=== PATIENT | male | born 1965 | race Caucasian/White ===

== ENCOUNTER 2018-07-04 14:28 | Inpatient (IN) | payer OTHER ==
[2018-07-04 15:13] LABS: ADD MAN DIFF? NO
[2018-07-04] MEDS: DILTIAZEM 25 MG INJ IV (15:13)
[2018-07-04 15:23] LABS: BASOPHILS % 0.4 % (0.0-2.0); EOSINOPHILS # 0.1 10^3/ul (0.0-0.5); EOSINOPHILS % 0.5 % (0.0-7.0); HEMATOCRIT 42.7 % (42.0-52.0); HEMOGLOBIN 14.9 g/dl (14.0-18.0); LYMPHOCYTES # 3.1 10^3/ul (0.8-2.9); LYMPHOCYTES % 31.9 % (15.0-51.0); MEAN CORPUSCULAR HGB CONC 34.9 g/dl (32.0-37.0); MEAN CORPUSCULAR VOLUME 86.1 fl (82.0-101.0); MEAN PLATELET VOLUME 11.6 fl (7.4-10.4); MONOCYTE # 0.8 10^3/ul (0.3-0.9); NEUTROPHIL # 5.7 10^3/ul (1.6-7.5); PLATELET COUNT 200 10^3/UL (140-415); RED BLOOD COUNT 4.96 10^6/ul (4.70-6.10); RED CELL DISTRIBUTION WIDTH 11.9 % (11.5-14.5)
[2018-07-04 15:23] LABS: WHITE BLOOD COUNT 9.7 10^3/ul (4.8-10.8)
[2018-07-04] MEDS: DILTIAZEM 30 MG TAB PO (15:34)
[2018-07-04] MEDS: SOD CHLORIDE 0.9% 1,000 ML IV (15:35)
[2018-07-04 15:44] LABS: ANION GAP 13 (5-13); BLOOD UREA NITROGEN 25 mg/dl (7-20); CALCIUM 9.4 mg/dl (8.4-10.2); CARBON DIOXIDE 24 mmol/L (21-31); CHLORIDE 106 mmol/L (97-110); CREATININE 1.09 mg/dl (0.61-1.24); Estimated GFR > 60 mL/min (>60); GLUCOSE 115 mg/dl (70-220); MAGNESIUM 1.9 mg/dl (1.7-2.5); POTASSIUM 3.5 mmol/L (3.5-5.1); SODIUM 143 mmol/L (135-144)
[2018-07-04 15:52] LABS: INR 0.99; PARTIAL THROMBOPLASTIN TIME 29.2 Sec (23.0-35.0); PROTIME 13.2 Sec (11.9-14.9)
[2018-07-04] MEDS ORDERED: NITROGLYCERIN (SL) 0.4 MG TAB SL (16:00)
[2018-07-04] MEDS ORDERED: LORAZEPAM 4 MG/ML VIAL IV (16:00)
[2018-07-04] MEDS ORDERED: HYDROmorphONE 0.5 MG/0.5 ML SYG IV (16:00)
[2018-07-04] MEDS ORDERED: MAGNESIUM HYDROXIDE 30ML CUP PO (16:00)
[2018-07-04] MEDS ORDERED: ONDANSETRON 4 MG INJ IV ×2 (16:00)
[2018-07-04] MEDS ORDERED: ALBUTEROL/IPRATROPIUM (NEB) 3 ML AMP HHN (16:00)
[2018-07-04] MEDS ORDERED: DOCUSATE SODIUM 100 MG CAP PO (16:00)
[2018-07-04] MEDS ORDERED: HYDROCODONE/APAP (5/325) TAB PO (16:00)
[2018-07-04] MEDS ORDERED: hydrALAzine 20 MG INJ IV (16:00)
[2018-07-04] MEDS ORDERED: NACL 0.9% 3 ML SYG IV (16:00)
[2018-07-04] MEDS ORDERED: ACETAMINOPHEN 325 MG TAB PO ×2 (16:00)
[2018-07-04 16:03] LABS: FREE T4 (FREE THYROXINE) 0.99 ng/dl (0.64-1.79)
[2018-07-04 16:08] LABS: TROPONIN-I 0.511 ng/ml (0.000-0.120)
[2018-07-04] MEDS: ASPIRIN 81 MG TAB PO (16:27)
[2018-07-04 16:28] LABS: AMPHETAMINE/METHAMPHETAMINE Negative (NEGATIVE); BARBITURATES Negative (NEGATIVE); BENZODIAZEPINES Negative (NEGATIVE); CANNABINOIDS Negative (NEGATIVE); COCAINE Negative (NEGATIVE)
[2018-07-04 17:18] LABS: OPIATES Negative (NEGATIVE)
[2018-07-04] MEDS: SOD CHLORIDE 0.45% 1,000 ML IV (17:54)
[2018-07-04] MEDS: ENOXAPARIN 100 MG/ML SYG SC (18:04)
[2018-07-04] MEDS: DILTIAZEM-D5W 125MG/125ML DRIP 125 ML IV (20:34)
[2018-07-04 21:04] LABS: CREATINE KINASE 82 IU/L (23-200)
[2018-07-04 21:15] LABS: CK INDEX 1.5; CK-MB 1.21 ng/ml (0.0-2.4)
[2018-07-04 21:32] LABS: TROPONIN-I 0.531 ng/ml (0.000-0.120)
[2018-07-05 02:33] LABS: ADD MAN DIFF? NO
[2018-07-05 02:35] LABS: WHITE BLOOD COUNT 11.3 10^3/ul (4.8-10.8)
[2018-07-05 02:35] LABS: BASOPHIL # 0.1 10^3/ul (0.0-0.1); BASOPHILS % 0.5 % (0.0-2.0); EOSINOPHILS # 0.1 10^3/ul (0.0-0.5); EOSINOPHILS % 0.7 % (0.0-7.0); HEMATOCRIT 42.8 % (42.0-52.0); HEMOGLOBIN 14.8 g/dl (14.0-18.0); LYMPHOCYTES # 3.2 10^3/ul (0.8-2.9); LYMPHOCYTES % 28.7 % (15.0-51.0); MEAN CORPUSCULAR HGB CONC 34.6 g/dl (32.0-37.0); MEAN CORPUSCULAR VOLUME 86.8 fl (82.0-101.0); MEAN PLATELET VOLUME 11.7 fl (7.4-10.4); MONOCYTE # 0.8 10^3/ul (0.3-0.9); MONOCYTES % 6.8 % (0.0-11.0); NEUTROPHIL # 7.1 10^3/ul (1.6-7.5); NEUTROPHILS % 62.9 % (39.0-77.0); PLATELET COUNT 194 10^3/UL (140-415); RED BLOOD COUNT 4.93 10^6/ul (4.70-6.10); RED CELL DISTRIBUTION WIDTH 11.9 % (11.5-14.5)
[2018-07-05 02:43] LABS: HEMOGLOBIN A1C 4.9 % (0-5.9)
[2018-07-05 02:52] LABS: CREATINE KINASE 78 IU/L (23-200)
[2018-07-05 02:53] LABS: CHOLESTEROL 164 mg/dl (100-200)
[2018-07-05 02:53] LABS: CHOL/HDL RATIO 7.4 RATIO; HDL CHOLESTEROL 22 mg/dl (28-71); LDL CHOLESTEROL,CALCULATED 51 mg/dl; TRIGLYCERIDES 457 mg/dl (0-149)
[2018-07-05 02:54] LABS: ANION GAP 10 (5-13); BLOOD UREA NITROGEN 21 mg/dl (7-20); CALCIUM 8.9 mg/dl (8.4-10.2); CARBON DIOXIDE 25 mmol/L (21-31); CHLORIDE 108 mmol/L (97-110); CREATININE 0.94 mg/dl (0.61-1.24); Estimated GFR > 60 mL/min (>60); GLUCOSE 111 mg/dl (70-220); MAGNESIUM 1.8 mg/dl (1.7-2.5); POTASSIUM 3.8 mmol/L (3.5-5.1); SODIUM 143 mmol/L (135-144)
[2018-07-05 03:03] LABS: CK INDEX 1.2; CK-MB 0.92 ng/ml (0.0-2.4)
[2018-07-05 03:07] LABS: TROPONIN-I 0.462 ng/ml (0.000-0.120)
[2018-07-05] MEDS: PANTOPRAZOLE (EC) 40 MG TAB PO ×2 (06:00→06:07)
[2018-07-05] MEDS: SOD CHLORIDE 0.45% 1,000 ML IV (06:07)
[2018-07-05] MEDS: DILTIAZEM-D5W 125MG/125ML DRIP 125 ML IV ×2 (07:01→15:44)
[2018-07-05] MEDS: ENOXAPARIN 100 MG/ML SYG SC ×2 (09:05→20:38)
[2018-07-05] MEDS: ATORVASTATIN 80 MG TAB PO (10:10)
[2018-07-05] MEDS: DEXTROSE 5%-0.45% NACL 1,000 ML IV (10:10)
[2018-07-05] MEDS: METOPROLOL 25 MG TAB PO (20:06)
[2018-07-06 05:58] LABS: ADD MAN DIFF? NO
[2018-07-06] MEDS: PANTOPRAZOLE (EC) 40 MG TAB PO (06:07)
[2018-07-06 06:09] LABS: BASOPHIL # 0.1 10^3/ul (0.0-0.1); BASOPHILS % 0.6 % (0.0-2.0); EOSINOPHILS # 0.1 10^3/ul (0.0-0.5); EOSINOPHILS % 1.1 % (0.0-7.0); HEMATOCRIT 40.3 % (42.0-52.0); HEMOGLOBIN 14.1 g/dl (14.0-18.0); LYMPHOCYTES # 2.1 10^3/ul (0.8-2.9); LYMPHOCYTES % 26.6 % (15.0-51.0); MEAN CORPUSCULAR HEMOGLOBIN 29.9 pg (29.0-33.0); MEAN CORPUSCULAR VOLUME 85.4 fl (82.0-101.0); MEAN PLATELET VOLUME 11.8 fl (7.4-10.4); MONOCYTE # 0.8 10^3/ul (0.3-0.9); MONOCYTES % 9.6 % (0.0-11.0); NEUTROPHIL # 4.9 10^3/ul (1.6-7.5); NEUTROPHILS % 61.7 % (39.0-77.0); PLATELET COUNT 176 10^3/UL (140-415); RED BLOOD COUNT 4.72 10^6/ul (4.70-6.10); RED CELL DISTRIBUTION WIDTH 11.8 % (11.5-14.5)
[2018-07-06 06:59] LABS: ANION GAP 9 (5-13); BLOOD UREA NITROGEN 17 mg/dl (7-20); CALCIUM 8.8 mg/dl (8.4-10.2); CARBON DIOXIDE 26 mmol/L (21-31); CHLORIDE 108 mmol/L (97-110); CREATININE 1.04 mg/dl (0.61-1.24); Estimated GFR > 60 mL/min (>60); GLUCOSE 105 mg/dl (70-220); POTASSIUM 3.8 mmol/L (3.5-5.1); SODIUM 143 mmol/L (135-144)
[2018-07-06] MEDS: ASPIRIN (EC) 325 MG TAB PO (08:58)
[2018-07-06] MEDS: METOPROLOL 25 MG TAB PO ×2 (08:59→20:27)
[2018-07-06] MEDS: ATORVASTATIN 80 MG TAB PO (08:59)
[2018-07-06] MEDS: ENOXAPARIN 100 MG/ML SYG SC (09:33)
[2018-07-07 05:55] LABS: ADD MAN DIFF? NO
[2018-07-07 06:03] LABS: WHITE BLOOD COUNT 6.6 10^3/ul (4.8-10.8)
[2018-07-07 06:03] LABS: BASOPHILS % 0.6 % (0.0-2.0); EOSINOPHILS # 0.2 10^3/ul (0.0-0.5); EOSINOPHILS % 2.9 % (0.0-7.0); HEMATOCRIT 42.4 % (42.0-52.0); HEMOGLOBIN 14.7 g/dl (14.0-18.0); LYMPHOCYTES % 29.9 % (15.0-51.0); MEAN CORPUSCULAR HEMOGLOBIN 29.9 pg (29.0-33.0); MEAN CORPUSCULAR HGB CONC 34.7 g/dl (32.0-37.0); MEAN CORPUSCULAR VOLUME 86.2 fl (82.0-101.0); MONOCYTE # 0.7 10^3/ul (0.3-0.9); MONOCYTES % 10.3 % (0.0-11.0); NEUTROPHIL # 3.7 10^3/ul (1.6-7.5); NEUTROPHILS % 55.5 % (39.0-77.0); PLATELET COUNT 176 10^3/UL (140-415); RED BLOOD COUNT 4.92 10^6/ul (4.70-6.10); RED CELL DISTRIBUTION WIDTH 11.6 % (11.5-14.5)
[2018-07-07] MEDS: PANTOPRAZOLE (EC) 40 MG TAB PO (06:03)
[2018-07-07 06:40] LABS: ANION GAP 7 (5-13); BLOOD UREA NITROGEN 20 mg/dl (7-20); CALCIUM 9.2 mg/dl (8.4-10.2); CARBON DIOXIDE 28 mmol/L (21-31); CHLORIDE 108 mmol/L (97-110); CREATININE 1.09 mg/dl (0.61-1.24); Estimated GFR > 60 mL/min (>60); GLUCOSE 107 mg/dl (70-220); SODIUM 143 mmol/L (135-144)
[2018-07-07] MEDS: ASPIRIN (EC) 325 MG TAB PO (08:58)
[2018-07-07] MEDS: HYDROCHLOROTHIAZIDE 25 MG TAB PO (08:59)
[2018-07-07] MEDS: METOPROLOL 25 MG TAB PO ×2 (08:59→12:00)
[2018-07-07] MEDS: SOD CHLORIDE 0.9% 100 ML (12:43)
[2018-07-07] MEDS: IOHEXOL 100 ML (12:43)
[2018-07-07] MEDS: METOPROLOL 5 MG INJ ×2 (12:50→13:03)
[2018-07-07] MEDS ORDERED: METOPROLOL 5 MG INJ IV (13:30)
[2018-07-07] MEDS: NITROGLYCERIN AEROSOL (4.9 GM) (13:58)
== END 2018-07-07 19:00 | disposition home or self-care (01) | DRG 282 ==
LOC: E/R 14:28 → TEL 15:56
DX: I21.4 Non-ST elevation (NSTEMI) myocardial infarction (principal); I48.0 Paroxysmal atrial fibrillation; I10 Essential (primary) hypertension
CPT/HCPCS: 36415; 71045; 75574; 80048; 80061; 80307; 82550; 82553; 83036; 83735; 84100; 84439; 84443; 84484; 85025; 85610; 85730; 93005; 93306; 96374; 99291-25